=== PATIENT | female | born 1995 | race African-American/Black ===

== ENCOUNTER 2018-07-31 11:43 | Emergency (ER) | payer BC ==
[~2018-07-31] VITALS: Ht 167.6 cm; Wt 82.5 kg
[2018-07-31 11:46] VITALS: TEMP 98
[2018-07-31] MEDS ORDERED: ZOFRAN ODT4 MG PO (12:08)
[2018-07-31 14:05] LABS: COLLECTION METHOD CLEAN CATCH
[2018-07-31 14:16] LABS: MUCOUS Present /lpf; PH 7 (5-8); SQUAMOUS EPITHELIAL 0-2 /hpf; URINE APPEARANCE Cloudy; URINE BACTERIA None Seen /hpf; URINE BILIRUBIN Negative (NEGATIVE); URINE BLOOD Negative (NEGATIVE); URINE COLOR Yellow; URINE GLUCOSE Negative (NEGATIVE); URINE KETONE Negative (NEGATIVE); URINE LEUKOCYTE ESTERASE 1+ (NEGATIVE); URINE NITRATE Negative (NEGATIVE); URINE PROTEIN(semi-quant) Negative (NEGATIVE); URINE RBC 0-2 /hpf; URINE UROBILINOGEN Negative (NEGATIVE)
[2018-07-31 14:41] VITALS: BP 132/76; PULSE 89
== END 2018-07-31 14:42 | disposition home or self-care (01) ==
LOC: COL.ER 11:43
PROVIDERS: Physician Assistant
DX: R51 Headache (principal); R41.3 Other amnesia; R11.2 Nausea with vomiting, unspecified; F07.81 Postconcussional syndrome
CPT/HCPCS: J7030

== ENCOUNTER → 2019-01-28 | Outpatient (CLI) | payer BC ==
[~2019-01-28] MED LIST: ZOFRAN ODT4 MG PO
== END ==
LOC: MC.RAD 01-24 14:15
DX: N63.24 Unspecified lump in the left breast, lower inner quadrant (principal)

== ENCOUNTER → 2019-08-22 | Outpatient (CLI) | payer BC | LOC: COL.RAD 10:23 | DX: R10.31 Right lower quadrant pain (principal) ==